=== PATIENT | female | born 2000 | race African-American/Black ===

== ENCOUNTER → 2020-05-07 10:07 | Outpatient (CLI) | payer OTHER, SELFPAY ==
--- NOTE | ~2020-05-07 | US_ITS ---
US abdomen complete EXAMINATION: US Abdomen Complete INDICATION: Loss of appetite. Vomiting. PROCEDURE: Realtime High Resolution abdomen ultrasound. COMPARISON: No prior studies for comparison FINDINGS: Gallbladder within normal limits. No gallstones, pericholecystic fluid, gallbladder wall t hickening or biliary dilatation. Common bile duct measures 3 mm. Liver echotexture within normal limits without focal mass. Pancreas within normal limits. Pancreati c tail is obscured by bowel gas. Spleen is unremarkeable. Renal echotexture is within normal limits bilaterally without hydronephrosis, contour deforming mass or renal stone. Right kidney measures 10.6 cm. Left kidney measures 10.5 cm. Visualized aspects of the aorta and IVC are within normal limits. Portal vein is patent. No sonograph ic Bajwa's sign indicated by the technologist. IMPRESSION: 1: Normal abdominal ultrasound. Reviewed, dictated and finalized at location B.
--- NOTE | ~2020-05-07 | XR_ITS ---
EXAMINATION: XR UGIAC wo kub DATE: 05/07/2020 11:05 INDICATION: Nausea, appetite loss and postprandial vomiting TECHNIQUE: Thick barium contrast with gas effervescent crystals were administered orally. Fluoroscop ic images of the esophagus, stomach, and proximal duodenum were obtained in various projections. The reafter, overhead images of the abdomen were performed. 1.1 minutes of fluroscopy. 38 images. FINDINGS: No prior studies for comparison. There is a small sliding hiatal hernia with gastroesophageal reflux. Esophageal mucosal pattern withi n normal limits without ulceration or diverticula. The gastric folds are normal. The proximal duodenum is also normal in appearance. IMPRESSION: 1. Small sliding hiatal hernia with gastroesophageal reflux. Reviewed, dictated and finalized at location B.
== END ==
PROVIDERS: Visit Provider Emergency Medicine
DX: K44.9 Diaphragmatic hernia without obstruction or gangrene (principal); K21.9 Gastro-esophageal reflux disease without esophagitis
CPT/HCPCS: 74246; 76700

== ENCOUNTER 2020-05-07 11:15 | Outpatient (CLI) | payer OTHER, SELFPAY ==
--- NOTE | ~2020-05-07 | NM_ITS ---
EXAM: NM gastric emptying study DATE: 05/07/2020 16:28 INDICATION: Nausea. Postprandial vomiting. TECHNIQUE: A gastric emptying study was performed using the methodology of Corby QUINTANA, et al. J Nucl Med 2007; 48:568-572. The patient was given a meal consisting of 2 scrambled eggs labeled with 1 mCi Tc-99m sulfur colloid, 2 slices of toast, two packages of jam, and approximately 120 mL of water. Si multaneous anterior and posterior 1-min images of the abdomen were obtained with the patient supine a t multiple time points over a total period of 4 hours. The geometric mean of anterior and posterior v iews was determined, and the percentage retention was calculated for each time point. COMPARISON: Upper gastrointestinal series 05/07/2020 FINDINGS: Gastric retention of the radiotracer-labeled meal was 49%, 18%, and 1% at the 1-hour, 2-ho ur, and 4-hour time points, respectively. With this technique, apparent rapid gastric emptying is sug gested by <30% gastric retention at 1 hour. Delayed gastric emptying is defined by gastric retention of >90% at 1 hour, >60% retention at 2 hours, or >10% retention at 4 hours. IMPRESSION: 1. Normal gastric emptying. Reviewed, dictated and finalized at location A. IMPRESSION: 1. Normal gastric emptying.
== END 2020-05-07 11:16 | disposition home or self-care (01) ==
PROVIDERS: PCP Emergency Medicine; Visit Provider Emergency Medicine
DX: R11.0 Nausea (principal)
CPT/HCPCS: 78264; A9541

== ENCOUNTER 2024-05-23 13:14 | Outpatient (CLI) | payer OTHER, SELFPAY ==
--- NOTE | ~2024-05-23 | US_ITS ---
Pelvic ultrasound. Clinical History: Hypertrophy of uterus Technique: Realtime transvaginal scanning of the pelvis was performed. Color flow Doppler and Doppler spectral analysis were performed. Findings: The uterus is anteverted and measures 7.8 x 5.1 x 6.3 cm. The endometrial stripe has a thi ckness of 8 mm. Heterogeneously hypoechoic anterior intramural mass measures 1.9 cm in maximum diamet er, compatible with fibroid.. The right ovary measures 2.6 x 3.1 x 2.6 cm. No significant right ovarian or adnexal mass is seen. The left ovary measures 4.0 x 5.4 x 2.7 cm cm. Simple left ovarian cyst measures 2.5 cm in diameter. Vascular flow present in both ovaries on Doppler spectral analysis. There is no evidence of free fluid in the cul de sac. Impression: 1.9 cm fibroid. 2.5 cm left ovarian cyst. Reviewed, dictated and finalized at [facility]. Impression: 1.9 cm fibroid. 2.5 cm left ovarian cyst.
== END 2024-05-23 13:15 | disposition home or self-care (01) ==
LOC: MICIMG 13:15
PROVIDERS: PCP Emergency Medicine; Visit Provider Nurse Practitioner
DX: N85.2 Hypertrophy of uterus (principal); N92.6 Irregular menstruation, unspecified; D25.9 Leiomyoma of uterus, unspecified; N83.202 Unspecified ovarian cyst, left side
CPT/HCPCS: 76830